=== PATIENT | female | born 1960 | race Caucasian/White ===

== ENCOUNTER 2023-11-07 09:06 | Emergency (ER) | payer MEDICARE, SELFPAY ==
[2023-11-07] VITALS (8 sets, daily range): BP systolic 108–190; BP diastolic 54–90; BMI 44.8
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
[2023-11-07 10:01] LABS: % Basophils 0.4 % (0-2); % Eosinophils 2.7 % (0-6); % Immature Granulocytes 0.5 % (0-0.5); % Lymphocytes 16.5 % (20.5-51.1); % Monocytes 5.3 % (1.7-9.3); % Neutrophils 74.6 % (42.2-75.2); Absolute Eosinophils 0.3 10^3/uL (0-0.7); Absolute Immature Granulocytes 0.1 10^3/uL (0-0.05); Absolute Lymphocytes 1.5 10^3/uL (1.2-3.4); Absolute Monocytes 0.5 10^3/uL (0.1-0.6); Absolute Neutrophils 6.9 10^3/uL (1.4-6.5); Hematocrit 34.7 % (37.0-47.0); Hemoglobin 11.8 g/dL (12.0-16.0); Mean Corpuscular Hgb 28.2 pg (27.0-31.0); Mean Platelet Volume 9.2 fL (7.4-10.4); Nucleated Red Blood Cells % 0 %; Platelet Count 274 10^3/uL (130-400); Red Blood Cell Count 4.18 10^6/uL (4.20-5.40); Red Cell Dist. Width 14.5 % (11.5-14.5); White Blood Cell Count 9.2 10^3/uL (4.8-10.8)
[2023-11-07 10:06] LABS: Urine Albumin Negative (Neg - Trace); Urine Bilirubin Negative (Negative); Urine Character Clear (Clear); Urine Color Yellow; Urine Glucose Negative (Negative); Urine Ketone Negative (Negative); Urine Leukocyte Negative (Negative); Urine Nitrite Negative (Negative); Urine Occult Blood Trace (Negative); Urine Specific Gravity 1.015 (<1.030); Urine Urobilinogen Negative (Neg - 1+); Urine pH 6.5 (5.0-9.0)
[2023-11-07 10:12] LABS: ALT (SGPT) 26 U/L (0-35); AST (SGOT) 43 U/L (14-36); Albumin 4.4 g/dl (3.5-5.0); Alkaline Phosphatase 91 U/L (38-126); Blood Urea Nitrogen 20 mg/dl (7-17); Calcium 9.9 mg/dl (8.4-10.2); Carbon Dioxide 30 mmol/L (22-30); Chloride 104 mmol/L (98-107); Estimated Creatinine Clearance 109 ml/min; Glucose 115 mg/dl (70-99); Lipase 31 U/L (23-300); Potassium 4.2 mmol/L (3.5-5.1); Sodium 138 mmol/L (135-145); Total Bilirubin 0.7 mg/dl (0.2-1.3); Total Protein 7.2 g/dl (6.3-8.2); eGFR > 60.00
[2023-11-07] MEDS: OMNIPAQUE 50 ML PO (10:20)
[2023-11-07 10:22] LABS: Urine Bacteria Few (Negative); Urine Yeast Few (Negative)
[2023-11-07 10:23] LABS: Troponin I < 0.012 ng/ml
[2023-11-07 15:49] LABS: Glucose - Point of Care 112 mg/dl (70-99)
[2023-11-07] MEDS: CITROMA 300 ML PO (16:02)
== END 2023-11-07 16:42 | disposition home or self-care (01) ==
LOC: EMR 09:06
PROVIDERS: EMERGENCY PHYSICIAN Student in an Organized Health Care Education/Training Program; FAMILY PHYSICIAN Family Medicine
DX: K59.00 Constipation, unspecified (principal); R10.9 Unspecified abdominal pain; I10 Essential (primary) hypertension; J45.909 Unspecified asthma, uncomplicated; E03.9 Hypothyroidism, unspecified; K21.9 Gastro-esophageal reflux disease without esophagitis; F17.200 Nicotine dependence, unspecified, uncomplicated; G89.29 Other chronic pain; Z90.49 Acquired absence of other specified parts of digestive tract; Z88.1 Allergy status to other antibiotic agents; Z91.041 Radiographic dye allergy status; Z88.0 Allergy status to penicillin; Z88.2 Allergy status to sulfonamides; Z88.8 Allergy status to other drugs, medicaments and biological substances; Z91.048 Other nonmedicinal substance allergy status
CPT/HCPCS: 99284; 74176; 80053; 81003; 81015; 82962; 83690; 84484; 85025; 93005

== ENCOUNTER → 2023-12-02 08:27 | Outpatient (REF) | payer MEDICARE, MEDICAID, SELFPAY | LOC: PAVMRI 08:27 | PROVIDERS: ATTENDING PHYSICIAN Internal Medicine; FAMILY PHYSICIAN Family Medicine; REFERRING PHYSICIAN Student in an Organized Health Care Education/Training Program | DX: Z86.73 Personal history of transient ischemic attack (TIA), and cerebral infarction without residual deficits (principal) | CPT/HCPCS: 70553; 72070; 72100; A9575 ==

== ENCOUNTER → 2024-01-02 12:25 | Outpatient (REF) | payer OTHER, MEDICAID, SELFPAY ==
[2024-01-02 13:17] LABS: Hematocrit 36.3 % (37.0-47.0); Hemoglobin 11.8 g/dL (12.0-16.0); Mean Corp Hgb Conc. 32.5 g/dL (33.0-37.0); Mean Corpuscular Hgb 28.1 pg (27.0-31.0); Mean Corpuscular Volume 86.4 fL (81.0-99.0); Mean Platelet Volume 9.1 fL (7.4-10.4); Platelet Count 264 10^3/uL (130-400); Red Cell Dist. Width 14.6 % (11.5-14.5); White Blood Cell Count 9.5 10^3/uL (4.8-10.8)
[2024-01-02 13:21] VITALS: BP 149/79; BP_SYST 71
[2024-01-02 13:29] LABS: INR 0.99; PT 13.1 Sec (11.4-14.6)
[2024-01-02 15:31] LABS: Spinal Fluid Glucose 57 mg/dl (40-70); Spinal Fluid Protein 50 mg/dl (12-60)
[2024-01-02 16:09] LABS: CSF Clarity Clear; CSF Color Colorless; CSF Tube # 1; Red Cell Count/CSF 128 mm^3; White Cell Count/CSF 1 mm^3 (0-5)
[2024-01-02 16:15] LABS: CSF Color Colorless; CSF Tube # 4; CSF Tube # Clarity Clear; Red Cell Count/CSF 10 mm^3; White Blood Cell Count/CSF 1 mm^3 (0-5)
[2024-01-02 21:31] LABS: IgG 1096 mg/dl (700-1600)
[2024-01-05 01:11] LABS: Albumin Index 5.2 ratio (0.0-9.0); Albumin, CSF 21 mg/dL (0-35); Albumin, Serum 4051 mg/dL (3500-5200); CSF IgG Synthesis Rate 11.8 mg/d (<=8.0); CSF IgG/Albumin Ratio 0.26 ratio (0.09-0.25); CSF Oligoclonal Bands Positive (Negative); CSF Oligoclonal Bands Number 14 Bands (0-1); IgG 1022 mg/dL (768-1632); IgG, CSF 5.5 mg/dL (0.0-6.0)
[2024-01-05 01:59] LABS: Angiotensin-1- Converting, CSF <0.4 U/L (0.0-2.5)
[2024-01-05 15:36] LABS: Myelin Basic Protein, CSF 2.98 ng/mL (0.00-5.50)
[2024-01-05 22:46] LABS: Paraneoplastic Ab IgG, CSF None Detected (None Detected)
[2024-01-06 01:35] LABS: CSF VDRL (T. pallidum) Non Reactive (Non Reactive)
== END ==
LOC: RADI 12:25
PROVIDERS: ATTENDING PHYSICIAN Specialist; FAMILY PHYSICIAN Family Medicine
DX: R51.9 Headache, unspecified (principal); G35 Multiple sclerosis; Z01.812 Encounter for preprocedural laboratory examination; Z01.818 Encounter for other preprocedural examination; R29.810 Facial weakness
CPT/HCPCS: 36415; 62328; 82040; 82042; 82164; 82784; 82945; 83873; 83916; 84157; 85027; 85610; 86255; 86592; 87483; 89051

== ENCOUNTER 2024-01-31 03:35 | Emergency (ER) | payer OTHER, SELFPAY ==
[2024-01-31 03:40] VITALS: BP 158/80
[2024-01-31 04:20] VITALS: BP 149/78
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
[2024-01-31] MEDS: FIORICET 1 TAB PO (04:34)
[2024-01-31 05:27] VITALS: BP 104/47
[2024-01-31 06:50] VITALS: BP 120/68
== END 2024-01-31 06:50 | disposition home or self-care (01) ==
LOC: EMR 03:35
PROVIDERS: EMERGENCY PHYSICIAN Student in an Organized Health Care Education/Training Program; FAMILY PHYSICIAN Family Medicine
DX: G43.909 Migraine, unspecified, not intractable, without status migrainosus (principal); G35 Multiple sclerosis; I10 Essential (primary) hypertension; K21.9 Gastro-esophageal reflux disease without esophagitis; E03.9 Hypothyroidism, unspecified; G89.29 Other chronic pain; J45.909 Unspecified asthma, uncomplicated; F17.200 Nicotine dependence, unspecified, uncomplicated; Z90.49 Acquired absence of other specified parts of digestive tract; Z88.1 Allergy status to other antibiotic agents; Z91.041 Radiographic dye allergy status; Z88.0 Allergy status to penicillin; Z88.2 Allergy status to sulfonamides; Z88.8 Allergy status to other drugs, medicaments and biological substances; Z91.048 Other nonmedicinal substance allergy status
CPT/HCPCS: 99283

== ENCOUNTER → 2024-02-10 10:16 | Outpatient (REF) | payer OTHER, SELFPAY | LOC: PAVMRI 10:16 | PROVIDERS: ATTENDING PHYSICIAN Specialist; FAMILY PHYSICIAN Family Medicine | DX: G35 Multiple sclerosis (principal) | CPT/HCPCS: 72156; A9575 ==

== ENCOUNTER → 2024-02-11 19:04 | Outpatient (REF) | payer OTHER, SELFPAY | LOC: MRI 19:04 | PROVIDERS: ATTENDING PHYSICIAN Specialist; FAMILY PHYSICIAN Family Medicine | DX: G35 Multiple sclerosis (principal) | CPT/HCPCS: 72157; A9575 ==

== ENCOUNTER 2024-03-12 13:53 | Emergency (ER) | payer OTHER, SELFPAY ==
[2024-03-12 14:15] VITALS: BP 152/69
--- NOTE | 2024-03-12 14:19 | ED.PDOC.TRB ---
ED Provider Triage
-
Patient seen by provider in Triage?: Seen in Triage
64F presenting to ED for evaluation of BP >200 systollically at home. Had headache and nausea which prompted her to take her BP. Started new medication today for MS. Symptoms started shortly after taking her new medication. BP in triage is 152/69.
NAD. No neuro findings. labs initiated. CT head ordered.
[2024-03-12 14:43] LABS: % Basophils 0.2 % (0-2); % Eosinophils 0.6 % (0-6); % Immature Granulocytes 1.1 % (0-0.5); % Lymphocytes 5.2 % (20.5-51.1); % Monocytes 3.5 % (1.7-9.3); % Neutrophils 89.4 % (42.2-75.2); Absolute Eosinophils 0.1 10^3/uL (0-0.7); Absolute Immature Granulocytes 0.1 10^3/uL (0-0.05); Absolute Lymphocytes 0.4 10^3/uL (1.2-3.4); Absolute Monocytes 0.3 10^3/uL (0.1-0.6); Absolute Neutrophils 7.5 10^3/uL (1.4-6.5); Hematocrit 36.1 % (37.0-47.0); Hemoglobin 12.4 g/dL (12.0-16.0); Mean Corp Hgb Conc. 34.3 g/dL (33.0-37.0); Mean Corpuscular Volume 81.5 fL (81.0-99.0); Mean Platelet Volume 8.5 fL (7.4-10.4); Nucleated Red Blood Cells % 0 %; Platelet Count 239 10^3/uL (130-400); Red Blood Cell Count 4.43 10^6/uL (4.20-5.40); Red Cell Dist. Width 14.6 % (11.5-14.5); White Blood Cell Count 8.4 10^3/uL (4.8-10.8)
[2024-03-12 14:59] LABS: ALT (SGPT) 24 U/L (0-35); AST (SGOT) 32 U/L (14-36); Albumin 4.7 g/dl (3.5-5.0); Alkaline Phosphatase 97 U/L (38-126); Blood Urea Nitrogen 26 mg/dl (7-17); Calcium 10.5 mg/dl (8.4-10.2); Carbon Dioxide 25 mmol/L (22-30); Chloride 101 mmol/L (98-107); Glucose 99 mg/dl (70-99); Potassium 5.1 mmol/L (3.5-5.1); Sodium 136 mmol/L (135-145); Total Bilirubin 0.8 mg/dl (0.2-1.3); eGFR > 60.00
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
[2024-03-12 16:38] VITALS: BP 113/73
[2024-03-12] MEDS: NSS 1000 IV (16:58)
[2024-03-12] MEDS: TORADOL 15 MG IV (16:58)
[2024-03-12] MEDS: REGLAN 10 MG IV (19:23)
[2024-03-12] MEDS: BENADRYL 25 MG IV (19:23)
[2024-03-12] MEDS: SENOKOT-S 1 TABLET PO (19:23)
== END 2024-03-12 20:44 | disposition home or self-care (01) ==
LOC: EMR 13:53
PROVIDERS: Physician Assistant Medical; EMERGENCY PHYSICIAN Emergency Medicine; FAMILY PHYSICIAN Family Medicine
DX: R51.9 Headache, unspecified (principal); R20.0 Anesthesia of skin; R42 Dizziness and giddiness; R11.0 Nausea; T50.995A Adverse effect of other drugs, medicaments and biological substances, initial encounter; I10 Essential (primary) hypertension; G35 Multiple sclerosis; E03.9 Hypothyroidism, unspecified; J45.909 Unspecified asthma, uncomplicated; G89.29 Other chronic pain; K21.9 Gastro-esophageal reflux disease without esophagitis; M19.90 Unspecified osteoarthritis, unspecified site; Z90.49 Acquired absence of other specified parts of digestive tract; Z85.841 Personal history of malignant neoplasm of brain; Z86.73 Personal history of transient ischemic attack (TIA), and cerebral infarction without residual deficits; Z87.891 Personal history of nicotine dependence; Z98.1 Arthrodesis status; Z79.82 Long term (current) use of aspirin; Z88.1 Allergy status to other antibiotic agents; Z91.041 Radiographic dye allergy status; Z88.0 Allergy status to penicillin; Z88.2 Allergy status to sulfonamides; Z88.8 Allergy status to other drugs, medicaments and biological substances; Z91.048 Other nonmedicinal substance allergy status
CPT/HCPCS: 99284; 96374; 96375 ×2; 96361; 70450; 80053; 85025; 93005

== ENCOUNTER 2024-06-29 12:26 | Emergency (ER) | payer OTHER, SELFPAY ==
[2024-06-29 12:28] VITALS: BP 167/82
[2024-06-29 12:43] VITALS: BMI 44.2
[2024-06-29 13:10] VITALS: BP 142/70
--- NOTE | 2024-06-29 13:17 | EDRN ---
Que Paul PA in room w/ pt at this time.
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
[2024-06-29] MEDS: TORADOL 30 MG IM (13:42)
== END 2024-06-29 13:55 | disposition home or self-care (01) ==
LOC: EMR 12:26
PROVIDERS: EMERGENCY PHYSICIAN Emergency Medicine; FAMILY PHYSICIAN Family Medicine
DX: M25.531 Pain in right wrist (principal); M25.511 Pain in right shoulder; I10 Essential (primary) hypertension; K21.9 Gastro-esophageal reflux disease without esophagitis; E03.9 Hypothyroidism, unspecified; G89.29 Other chronic pain; J45.909 Unspecified asthma, uncomplicated; F17.200 Nicotine dependence, unspecified, uncomplicated; Z79.82 Long term (current) use of aspirin; Z90.49 Acquired absence of other specified parts of digestive tract; Z98.1 Arthrodesis status; Z88.1 Allergy status to other antibiotic agents; Z91.041 Radiographic dye allergy status; Z88.0 Allergy status to penicillin; Z88.2 Allergy status to sulfonamides; Z88.8 Allergy status to other drugs, medicaments and biological substances; Z91.048 Other nonmedicinal substance allergy status
CPT/HCPCS: 99284; 96372; 73110

== ENCOUNTER 2024-09-28 13:44 | Emergency (ER) | payer OTHER, SELFPAY ==
[2024-09-28 13:51] VITALS: BP 170/86
[2024-09-28 14:15] LABS: % Basophils 0.5 % (0-2); % Eosinophils 1.7 % (0-6); % Immature Granulocytes 0.5 % (0-0.5); % Lymphocytes 18.8 % (20.5-51.1); % Monocytes 6.8 % (1.7-9.3); % Neutrophils 71.7 % (42.2-75.2); Absolute Eosinophils 0.1 10^3/uL (0-0.7); Absolute Lymphocytes 1.1 10^3/uL (1.2-3.4); Absolute Monocytes 0.4 10^3/uL (0.1-0.6); Absolute Neutrophils 4.1 10^3/uL (1.4-6.5); Hematocrit 34.9 % (37.0-47.0); Hemoglobin 11.7 g/dL (12.0-16.0); Mean Corp Hgb Conc. 33.5 g/dL (33.0-37.0); Mean Corpuscular Hgb 28.8 pg (27.0-31.0); Mean Platelet Volume 9.3 fL (7.4-10.4); Nucleated Red Blood Cells % 0 %; Platelet Count 197 10^3/uL (130-400); Red Blood Cell Count 4.06 10^6/uL (4.20-5.40); Red Cell Dist. Width 15.2 % (11.5-14.5); White Blood Cell Count 5.7 10^3/uL (4.8-10.8)
[2024-09-28 14:29] LABS: ALT (SGPT) 42 U/L (0-35); AST (SGOT) 30 U/L (14-36); Albumin 4.5 g/dl (3.5-5.0); Alkaline Phosphatase 64 U/L (38-126); Blood Urea Nitrogen 24 mg/dl (7-17); Calcium 9.8 mg/dl (8.4-10.2); Carbon Dioxide 30 mmol/L (22-30); Chloride 101 mmol/L (98-107); Glucose 101 mg/dl (70-99); Lipase 33 U/L (23-300); Potassium 4.5 mmol/L (3.5-5.1); Sodium 136 mmol/L (135-145); Total Bilirubin 0.6 mg/dl (0.2-1.3); Total Protein 7.2 g/dl (6.3-8.2); eGFR > 60.00
[2024-09-28 16:21] VITALS: BMI 27.4
[2024-09-28 17:09] VITALS: BP 129/62
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
== END 2024-09-28 18:15 | disposition home or self-care (01) ==
LOC: EMR 13:44
PROVIDERS: EMERGENCY PHYSICIAN Emergency Medicine; FAMILY PHYSICIAN Family Medicine
DX: R10.11 Right upper quadrant pain (principal); J45.909 Unspecified asthma, uncomplicated; K21.9 Gastro-esophageal reflux disease without esophagitis; E03.9 Hypothyroidism, unspecified; F17.200 Nicotine dependence, unspecified, uncomplicated; I10 Essential (primary) hypertension; Z90.49 Acquired absence of other specified parts of digestive tract
CPT/HCPCS: 99284; 76700; 80053; 83690; 85025

== ENCOUNTER 2025-01-20 23:35 | Emergency (ER) | payer OTHER, SELFPAY ==
[2025-01-21 00:09] VITALS: BP 174/83
[2025-01-21 00:35] LABS: % Basophils 0.5 % (0-2); % Immature Granulocytes 0.6 % (0-0.5); % Lymphocytes 20.7 % (20.5-51.1); % Monocytes 8.5 % (1.7-9.3); % Neutrophils 66.7 % (42.2-75.2); Absolute Eosinophils 0.2 10^3/uL (0-0.7); Absolute Lymphocytes 1.3 10^3/uL (1.2-3.4); Absolute Monocytes 0.5 10^3/uL (0.1-0.6); Absolute Neutrophils 4.3 10^3/uL (1.4-6.5); Hematocrit 36.2 % (37.0-47.0); Hemoglobin 12.3 g/dL (12.0-16.0); Mean Corpuscular Hgb 28.5 pg (27.0-31.0); Mean Platelet Volume 9.1 fL (7.4-10.4); Nucleated Red Blood Cells % 0 %; Platelet Count 236 10^3/uL (130-400); Red Blood Cell Count 4.31 10^6/uL (4.20-5.40); Red Cell Dist. Width 14.7 % (11.5-14.5); White Blood Cell Count 6.4 10^3/uL (4.8-10.8)
[2025-01-21 00:54] LABS: ALT (SGPT) 38 U/L (0-35); AST (SGOT) 37 U/L (14-36); Albumin 4.4 g/dl (3.5-5.0); Alkaline Phosphatase 78 U/L (38-126); Blood Urea Nitrogen 19 mg/dl (7-17); Calcium 10.2 mg/dl (8.4-10.2); Carbon Dioxide 30 mmol/L (22-30); Chloride 101 mmol/L (98-107); Glucose 105 mg/dl (70-99); Sodium 137 mmol/L (135-145); Total Bilirubin 0.7 mg/dl (0.2-1.3); Total Protein 7.1 g/dl (6.3-8.2); eGFR > 60.00
[2025-01-21 01:01] LABS: Troponin I < 0.012 ng/ml
[2025-01-21 02:35] VITALS: BMI 45.4
[2025-01-21 02:36] VITALS: BP 141/73
[2025-01-21 04:47] VITALS: BP 160/99
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
[2025-01-21 05:14] LABS: Troponin I < 0.012 ng/ml
== END 2025-01-21 05:45 | disposition home or self-care (01) ==
LOC: EMR 23:35
PROVIDERS: Physician Assistant; EMERGENCY PHYSICIAN Emergency Medicine
DX: R07.89 Other chest pain (principal); J44.89 Other specified chronic obstructive pulmonary disease; E03.9 Hypothyroidism, unspecified; I10 Essential (primary) hypertension; F17.200 Nicotine dependence, unspecified, uncomplicated; G35 Multiple sclerosis; Z86.73 Personal history of transient ischemic attack (TIA), and cerebral infarction without residual deficits
CPT/HCPCS: 99284; 71046; 80053; 84484; 85025; 93005

== ENCOUNTER 2025-01-22 13:11 | Emergency (ER) | payer OTHER, SELFPAY ==
[2025-01-22 13:14] VITALS: BP 165/86
[2025-01-22 14:04] VITALS: BMI 44.8
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
[2025-01-22] MEDS: DILAUDID 1 MG IV ×2 (14:47→16:43)
[2025-01-22] MEDS: TORADOL 15 MG IV (17:17)
== END 2025-01-22 18:04 | disposition home or self-care (01) ==
LOC: EMR 13:11
PROVIDERS: EMERGENCY PHYSICIAN Emergency Medicine; FAMILY PHYSICIAN Family Medicine
DX: S29.9XXA Unspecified injury of thorax, initial encounter (principal); W18.30XA Fall on same level, unspecified, initial encounter; I10 Essential (primary) hypertension; E03.9 Hypothyroidism, unspecified; J44.89 Other specified chronic obstructive pulmonary disease; F17.200 Nicotine dependence, unspecified, uncomplicated
CPT/HCPCS: 99285; 96374; 96375; 96376; 70450; 71250; 72125; 73030; 73060

== ENCOUNTER → 2025-02-03 16:00 | Outpatient (REF) | payer OTHER, SELFPAY | LOC: RAD 16:00 | PROVIDERS: ATTENDING PHYSICIAN Family Medicine | DX: S23.41XA Sprain of ribs, initial encounter (principal) | CPT/HCPCS: 71101 ==

== ENCOUNTER → 2025-08-06 14:09 | Outpatient (REF) | payer OTHER, SELFPAY | LOC: PAVMRI 14:09 | PROVIDERS: ATTENDING PHYSICIAN Nurse Practitioner | DX: G35.D Multiple sclerosis, unspecified (principal) | CPT/HCPCS: 70553 ==

== ENCOUNTER → 2025-08-09 10:07 | Outpatient (REF) | payer OTHER, SELFPAY | LOC: PAVMRI 10:07 | PROVIDERS: ATTENDING PHYSICIAN Nurse Practitioner | DX: G35.D Multiple sclerosis, unspecified (principal) | CPT/HCPCS: 72156 ==

== ENCOUNTER → 2025-10-04 14:33 | Outpatient (REF) | payer OTHER, SELFPAY | LOC: PAVMRI 14:33 | PROVIDERS: ATTENDING PHYSICIAN Nurse Practitioner | DX: G35.A Relapsing-remitting multiple sclerosis (principal) | CPT/HCPCS: 72157; A9575 ==